=== PATIENT | male | born 1970 ===

== ENCOUNTER 2025-01-23 19:04 | Emergency (ER) | payer BC, OTHER ==
[2025-01-23] MEDS: Diphtheria,Pertussis(Acell),Tetanus Vaccine 0.5 ML Syringe IM ONE (19:24)
[2025-01-23] MEDS: Take Home: Acetaminophen/HYDROcodone 325-5 MG, 5 Tab Pack PO ONE (21:20)
[2025-01-23] MEDS: Take Home: Cephalexin 500 MG Cap, 6 Cap Pack PO ONE (21:20)
== END 2025-01-23 21:20 | disposition home or self-care (01) ==
LOC: DL.ED 19:04
DX: S61.204A Unspecified open wound of right ring finger without damage to nail, initial encounter (principal); W23.1XXA Caught, crushed, jammed, or pinched between stationary objects, initial encounter; Y93.89 Activity, other specified
CPT/HCPCS: 64450; 73140; 90471; 90715; 96374; 99283; A9270; J0690; J2003